=== PATIENT | female | born 1950 | race Caucasian/White ===

== ENCOUNTER 2018-03-08 18:27 | Emergency (ER) ==
[2018-03-08 18:33] VITALS: TEMP 98.7; BMI 25.2
--- NOTE | 2018-03-08 20:59 | ED.PDOC ---
General ED Provider: Dr. KALYAN GAMBOA Chief Complaint: Back Pain Stated Complaint: Patient states she has had right flank and right lower quadrant abdominal pain for one month but has gotten worse in the last 4 days with associated burning on urination and increased frequency. Pain is also worse with movement. Time Seen by Physician: 21:20 Mode of Arrival: Walk-In Information Source: Patient Exam Limitations: No limitations Primary Care Provider: J[place]ICA VALENCIA Nursing and Triage Documentation Reviewed and Agree: Yes Does patient meet sepsis criteria?: No System Inflammatory Response Syndrome: Not Applicable Sepsis Protocol: For patient's 13 years and over: Temp is 96.8 and below OR 101 and greater Pulse >90 BPM Resp >20/minute Acutely Altered Mental Status Are patient's symptoms suggestive of a new infection, such as: -Pneumonia -Skin, Soft Tissue -Endocarditis -UTI -Bone, Joint Infection -Implantable Device -Acute Abdominal Infection -Wound Infection -Meningitis -Blood Stream Catheter Infection -Unknown Musculoskeletal Complaint Exam - Back Pain Complaint/Exam Mechanism of Injury: Reports: No known trauma Onset/Duration: 1 month Symptoms Are: Still present Timing: Constant Initial Severity: Moderate Current Severity: Moderate Location: Reports: Discrete (right lower quadrant ), Radiating (Flank ) Character: Reports: Aching, Throbbing Aggravating: Reports: Movements, Lifting, Bending Alleviating: Reports: None Associated Signs and Symptoms: Reports: Abdominal pain, Flank pain. Denies: Swelling, Redness, Bruising, Fever, Weakness, Numbness, Tingling, Bladder incontinence, Bowel incontinence, Weight loss, Pain with weight bearing TAD Risk Factors: Reports: None AAA Risk Factors: Reports: None Cauda Equina Risk Factors: Reports: None Focal Tenderness: Yes Paraspinal Muscle Tenderness: Yes Paraspinal Muscle Spasm: Yes Scoliosis: No Lordosis: No Kyphosis: No SLR Test: Right Negative, Left Negative Focal Weakness: Present: None Focal Sensory Loss: Present: None Back Picture: 1 - tenderness to palpation Differential Diagnoses: Strain, Sprain Review of Systems - Review Of Systems Constitutional: Reports: No symptoms Eyes: Reports: No symptoms Ears, Nose, Mouth, Throat: Reports: No symptoms Respiratory: Reports: No symptoms Cardiac: Reports: No symptoms GI: Reports: Abdominal pain : Reports: Burning, Dysuria, Flank pain Musculoskeletal: Reports: No symptoms Skin: Reports: No symptoms Neurological: Reports: No symptoms Endocrine: Reports: No symptoms Hematologic/Lymphatic: Reports: No symptoms All Other Systems: Reviewed and Negative Past Medical History - Past Medical History Previously Healthy: Yes Endocrine: Reports: None Cardiovascular: Reports: None Respiratory: Reports: None Hematological: Reports: None Gastrointestinal: Reports: None Genitourinary: Reports: None Neuro/Psych: Reports: None Musculoskeletal: Reports: None Cancer: Reports: None Last Menstrual Period: N/A - Surgical History General Surgical History: Reports: Orthopedic (CARPAL TUNNEL RIGHT WRIST) - Family History Family History: Reports: None - Social History Smoking Status: Current every day smoker Hx Substance Use: No Alcohol Screening: None Physical Exam - Physical Exam Appearance: Ill-appearing Ill-appearing: Mild Pain Distress: Severe Neck: Supple Respiratory: Airway patent Cardiovascular: RRR, Pulses normal, No rub, No murmur GI/: Soft, Tender (Right lower quadrant ) Musculoskeletal: Normal strength, ROM intact, No edema, No calf tenderness Skin: Warm, Dry, Normal color Neurological: Sensation intact, Motor intact, Reflexes intact, Cranial nerves intact, Alert, Oriented Psychiatric: Anxious Interpretation - Radiology Interpretation Radiology Interpretation By: Radiologist Radiology Results: Negative Exam Interpreted: CT Scan Critical Care Note - Critical Care Note Total Time (mins): 0 Course - Course Hematology/Chemistry: 03/08/18 21:43 03/08/18 21:43 Orders, Labs, Meds: Lab Review 03/08/18 03/08/18 03/08/18 18:57 21:43 21:43 WBC 9.28 RBC 4.71 Hgb 12.6 Hct 38.7 MCV 82.2 MCH 26.8 L MCHC 32.6 RDW Coeff of Ced 13.9 Plt Count 218 Immature Gran % (Auto) 0.3 Neut % (Auto) 61.9 Lymph % (Auto) 29.2 [place] % (Auto) 7.3 Eos % (Auto) 1.2 Baso % (Auto) 0.1 Immature Gran # (Auto) 0.0 Neut # (Auto) 5.7 Lymph # (Auto) 2.7 [place] # (Auto) 0.7 Eos # (Auto) 0.1 Baso # (Auto) 0.0 Sodium 136.8 L Potassium 4.33 Chloride 103.1 Carbon Dioxide 31.6 H Anion Gap 6.43 BUN 15.0 Creatinine 0.92 Estimated GFR (MDRD) 61.00 BUN/Creatinine Ratio 16.30 Glucose 96.3 Calcium 10.55 H Total Bilirubin 0.27 AST 24.7 ALT 17.7 Alkaline Phosphatase 74.5 Total Protein 7.59 Albumin 4.30 Globulin 3.29 Albumin/Globulin Ratio 1.30 Amylase 76.2 Lipase 145.1 Urine Color Yellow Urine Clarity Clear Urine pH 7.0 Ur Specific [place] 1.015 Urine Protein Negative Urine Glucose (UA) Negative Urine Ketones Negative Urine Blood Trace-intact Urine Nitrite Negative Urine Bilirubin Negative Urine Urobilinogen 0.2 Ur Leukocyte Esterase Negative Urine Microscopic RBC 2-5 Ur Squamous Epith Cells Not present Amorphous Sediment Trace Urine Bacteria Trace Orders Category Date Time Status ED IV/MEDIPORT/POWERPORT .ONCE EMERGENCY 03/08/18 21:24 Active AMYLASE Stat LAB 03/08/18 21:43 Completed CBC W/ AUTO DIFF Stat LAB 03/08/18 21:43 Completed COMPREHENSIVE METABOLIC PANEL Stat LAB 03/08/18 21:43 Completed LIPASE Stat LAB 03/08/18 21:43 Completed URINALYSIS C & S IF INDICATED Stat LAB 03/08/18 18:57 Completed 0.9 % Sodium Chloride [Saline Flush] MEDS 03/08/18 21:24 Ordered 1 syr IVF PRN PRN Ketorolac Tromethamine [Toradol] MEDS 03/08/18 21:24 Discontinued 30 mg IVP ONCE STA Sodium Chloride 0.9% [Sodium Chloride] 1,000 ml MEDS 03/08/18 21:[address] ABD/PEL WO RENAL STONE PROT Stat RADS 03/08/18 21:24 Completed Medications Generic Name Dose Route Start Last Admin Trade Name Freq PRN Reason Stop Dose Admin Sodium Chloride 1,000 mls @ 1,000 mls/hr 03/08/18 21:24 03/08/18 21:57 Sodium Chloride IV 03/08/18 22:23 1,000 mls/hr BOLUS STA Administration Sodium Chloride 1 syr 03/08/18 21:24 03/08/18 21:56 Saline Flush IVF 1 syr PRN PRN Administration To flush IV Discontinued Medications Generic Name Dose Route Start Last Admin Trade Name Freq PRN Reason Stop Dose Admin Ketorolac Tromethamine 30 mg 03/08/18 21:24 03/08/18 21:58 Toradol IVP 03/08/18 21:25 30 mg ONCE STA Administration Vital Signs: Temp Pulse Resp BP Pulse Ox 03/08/18 18:27 98.7 F 90 20 161/100 H 96 Departure - Departure Time of Disposition: 22:16 Disposition: HOME SELF-CARE Discharge Problem: Backache Instructions: Chronic Back Pain (ED) Condition: Stable Pt referred to PMD for follow-up: Yes IPMP verified?: No Additional Instructions: Take Medications as prescribed Follow up with PCP in 3 days Prescriptions: Cyclobenzaprine HCl [Flexeril] 10 mg PO DAILY PRN #20 tablet PRN Reason: spasms Ibuprofen [Motrin] 600 mg PO Q6H PRN #30 tablet PRN Reason: Analgesia Allergies/Adverse Reactions: Allergies No Known Allergies Allergy (Unverified 03/08/18 18:33) Home Medications: Ambulatory Orders Aspirin 81 mg PO DAILY 03/08/18 Cyclobenzaprine HCl [Flexeril] 10 mg PO DAILY PRN #20 tablet 03/08/18 Ibuprofen [Motrin] 600 mg PO Q6H PRN #30 tablet 03/08/18 Disposition Discussed With: Patient
[2018-03-08] MEDS ORDERED: SODIUM CHLORIDE 1,000 ML IV STA (21:24)
[2018-03-08] MEDS ORDERED: TORADOL IVP STA (21:24)
--- NOTE | 2018-03-08 21:56 | CT ---
EXAM: Noncontrast CT of the abdomen and pelvis HISTORY: Right flank pain, right lower abdominal pain COMPARISON: None available. TECHNIQUE: Axial noncontrast CT of the abdomen pelvis with sagittal and coronal reformats. FINDINGS: No renal, ureteral or bladder calculi are identified. There is a small left renal vascular calcifica tion. Noncontrast technique limits evaluation of the abdominal viscera. Hepatic and splenic calcified granu bib are identified. The unenhanced gallbladder, adrenals, kidneys and pancreas appear unremarkable. Ingested material is seen within the stomach. No abnormal small bowel dilation is seen. The colon bairon ears within normal limits. The appendix is within normal limits. There is calcified atherosclerotic plaque of the aorta and some of its branches. No free air or free fluid is seen. There is moderate multilevel lumbar degenerative disc disease. IMPRESSION: No evidence of urolithiasis. No acute intra-abdominal findings. Appendix within normal limits. Atherosclerosis. Degenerative changes of the lumbar spine. Noncontrast exam.
[2018-03-08 22:50] VITALS: BP 154/80
== END 2018-03-08 22:58 | disposition home or self-care (01) ==
LOC: ED 18:27
DX: M54.9 Dorsalgia, unspecified (principal); R10.31 Right lower quadrant pain; R30.0 Dysuria; R35.0 Frequency of micturition; F17.210 Nicotine dependence, cigarettes, uncomplicated
CPT/HCPCS: 36415; 74176; 80053; 81001; 82150; 83690; 85025; 96361; 96374; 99283